=== PATIENT | female | born 2000 | race Caucasian/White ===

== ENCOUNTER 2021-09-09 20:33 | Observation (INO) ==
[2021-09-09 21:05] LABS: ABS Lymphocytes 2.6 10^3/ul (1.0-4.8); ABS Monocytes 0.7 10^3/ul (0-0.8); ABS Neutrophils 6.9 10^3/ul (1.5-7.7); Eosinophil % 0.4 %; Hematocrit 37 % (35-47); Hemoglobin 12.4 g/dL (12.0-16.0); Lymphocyte % 25.4 %; Mean Corpuscular HGB Conc 34 g/dL (31-36); Mean Corpuscular Hemoglobin 29 pg (27-31); Mean Corpuscular Volume 86 fL (80-97); Mean Platelet Volume 8.3 fL (7.4-10.4); Platelet Count 280 10^3/uL (150-450); Red Blood Count 4.27 10^6 /uL (3.70-4.87); Red Cell Distribution Width 13 % (10-15); White Blood Count 10.3 10^3/uL (3.5-10.8)
[2021-09-09 21:11] LABS: INR 1.09 (0.86-1.15)
[2021-09-09 21:19] LABS: ALT 10 U/L (7-52); AST 17 U/L (13-39); Albumin 4.2 g/dL (3.2-5.2); Albumin/Globulin Ratio 1.4 (1-3); Alkaline Phosphatase 46 U/L (35-149); Anion Gap 10 mmol/L (2-11); Blood Urea Nitrogen 16 mg/dL (6-24); CO2 Carbon Dioxide 20 mmol/L (22-32); Calcium 9.3 mg/dL (8.6-10.3); Chloride 106 mmol/L (101-111); Glucose 105 mg/dL (70-100); Potassium 3.5 mmol/L (3.5-5.0); Sodium 136 mmol/L (135-145); Total Protein 7.2 g/dL (6.4-8.9)
[2021-09-09 21:20] LABS: Troponin I 0.04 ng/mL (<0.03)
[2021-09-09 21:49] LABS: HCG Pregnancy < 0.60 mIU/mL
[2021-09-09 22:34] LABS: C Reactive Protein 11.92 mg/L (<8.01)
[2021-09-10 01:18] LABS: Erythrocyte Sed Rate 5 mm/Hr (0-19)
[2021-09-10 02:02] LABS: Troponin I 0.04 ng/mL (<0.03)
[2021-09-10 03:20] LABS: Rapid COVID-19 Molecular Undetected (Undetected)
[2021-09-10 04:09] LABS: Alcohol, S < 13 mg/dL (<13)
[2021-09-10 05:24] LABS: Troponin I 0.04 ng/mL (<0.03)
[2021-09-10] MEDS ORDERED: NS 0.9% 1000 ml BAG 1,000 ML IV SCH (06:15)
[2021-09-10] MEDS ORDERED: NF: Norethindrone/Eth Est 1.5/30NF TAB PO SCH (09:00)
[2021-09-10 12:27] LABS: % Iron Saturation 15 % (15-55); Iron 57 ug/dL (50-212); Lipase 19 U/L (11.0-82.0); Total Iron Binding Capacity 389 mcg/dL (250-450); Transferrin 278 mg/dL (203-362); Unsaturated Iron Binding < 374 ug/dL
[2021-09-10 12:47] LABS: Ferritin 38.7 ng/mL (11-307)
[2021-09-10 13:25] LABS: Rapid COVID-19 Molecular Undetected (Undetected)
[2021-09-10 13:28] LABS: Calcium 9.2 mg/dL (8.6-10.3); Potassium 4.1 mmol/L (3.5-5.0)
[2021-09-10 15:59] VITALS: BP 120/68
[2021-09-11 23:14] LABS: Anaplasma phagocytophilum Negative (Negative); B. miyamotoi PCR, B Negative (Negative); Babesia divergens/MO-1 Negative (Negative); Babesia ducani Negative (Negative); Ehrlichia chaffeensis Negative (Negative); Ehrlichia ewingii/canis Negative (Negative); Ehrlichia muris eauclairensis Negative (Negative)
== END 2021-09-10 16:00 | disposition home or self-care (01) ==
LOC: ED 20:33 → EDHOLD 20:33
PROVIDERS: ADMIT Internal Medicine; ATTEND Hospitalist